=== PATIENT | male | born 1950 | race Caucasian/White ===

== ENCOUNTER → 2016-05-06 | Outpatient (CLI) | payer MEDICARE ==
[2016-05-06 11:32] LABS: Basophils % (A) 1 %; CH 30.3; CHCM 33.1; Eosinophils # (A) 0.1 k/uL (0-0.7); Eosinophils % (A) 2 %; HCT 45.5 % (39.0-53.0); HDW 2.43; HGB 14.9 gm/dL (13.0-17.5); Luc % (Auto) 3; Lymphocytes # (A) 0.9 k/uL (1.0-4.8); Lymphocytes % (A) 24 %; MCH 30.2 pg (25.0-35.0); MCHC 32.8 g/dL (31.0-37.0); MCV 92.1 fL (80.0-100.0); Monocytes # (A) 0.2 k/uL (0-1.0); Monocytes % (A) 5 %; Neutrophils # (A) 2.6 k/uL (1.3-7.7); Neutrophils % (A) 67 %; RBC 4.94 m/uL (4.30-5.90); RDW 12.7 % (11.5-15.5); WBC (Perox) 4.05
[2016-05-06 11:47] LABS: Hemoglobin A1C 5.2 % (4.2-6.1)
[2016-05-06 11:52] LABS: ALT 36 U/L (21-72); AST 24 U/L (17-59); Alkaline Phosphatase 60 U/L (38-126); Anion Gap 9 mmol/L; Blood Urea Nitrogen 17 mg/dL (9-20); Calcium 9.6 mg/dL (8.4-10.2); Carbon Dioxide 28 mmol/L (22-30); Chloride 104 mmol/L (98-107); Cholesterol 195 mg/dL (<200); Creatine Kinase 102 U/L (55-170); Glucose 97 mg/dL (74-99); HDL Cholesterol 57 mg/dL (40-60); Non-African American GFR(MDRD) >60 (>60 ml/min/1.73 sqM); Potassium 5.2 mmol/L (3.5-5.1); Sodium 141 mmol/L (137-145); Total Bilirubin 0.8 mg/dL (0.2-1.3); Total Protein 7.3 g/dL (6.3-8.2); Triglycerides 112 mg/dL (<150); Uric Acid 6.3 mg/dL (3.5-8.5)
== END | disposition home or self-care (01) ==
LOC: LABWHC1 10:05
PROVIDERS: ATTEND Internal Medicine
DX: I10 Essential (primary) hypertension (principal); F32.9 Major depressive disorder, single episode, unspecified
CPT/HCPCS: 36415; 80053; 80061; 82550; 83036; 84443; 84550; 85025

== ENCOUNTER → 2016-09-21 | Outpatient (CLI) | payer MEDICARE ==
[2016-09-21 11:09] LABS: ALT 30 U/L (21-72); AST 25 U/L (17-59); Alkaline Phosphatase 64 U/L (38-126); Anion Gap 11 mmol/L; Blood Urea Nitrogen 19 mg/dL (9-20); Calcium 9.4 mg/dL (8.4-10.2); Carbon Dioxide 24 mmol/L (22-30); Chloride 107 mmol/L (98-107); Cholesterol 167 mg/dL (<200); Creatine Kinase 220 U/L (55-170); Glucose 99 mg/dL (74-99); HDL Cholesterol 51 mg/dL (40-60); Non-African American GFR(MDRD) >60 (>60 ml/min/1.73 sqM); Potassium 4.6 mmol/L (3.5-5.1); Sodium 142 mmol/L (137-145); Total Bilirubin 0.7 mg/dL (0.2-1.3); Total Protein 6.8 g/dL (6.3-8.2); Triglycerides 61 mg/dL (<150); Uric Acid 5.2 mg/dL (3.5-8.5)
[2016-09-21 11:39] LABS: Basophils % (A) 1 %; CH 31.5; CHCM 33.2; Eosinophils # (A) 0.1 k/uL (0-0.7); Eosinophils % (A) 2 %; HCT 45.9 % (39.0-53.0); HDW 2.35; HGB 14.5 gm/dL (13.0-17.5); Luc # (Auto) 0.11; Luc % (Auto) 2; Lymphocytes # (A) 0.8 k/uL (1.0-4.8); Lymphocytes % (A) 14 %; MCH 30.2 pg (25.0-35.0); MCHC 31.7 g/dL (31.0-37.0); MCV 95.4 fL (80.0-100.0); Mean Platelet Volume 9.6; Monocytes # (A) 0.3 k/uL (0-1.0); Monocytes % (A) 5 %; Neutrophils # (A) 4.3 k/uL (1.3-7.7); Neutrophils % (A) 77 %; Prostate Specific Antigen 0.97 ng/mL (0.00-4.00); RBC 4.82 m/uL (4.30-5.90); RDW 13.4 % (11.5-15.5); WBC 5.6 k/uL (3.8-10.6)
[2016-09-21 11:49] LABS: Appearance,Urine Clear (Clear); Bilirubin,Urine Negative (Negative); Glucose,Urine (UA) Negative (Negative); Ketones,Urine Negative (Negative); Leukocyte Esterase,Urine Negative (Negative); Nitrite,Urine Negative (Negative); PH, Urine 5.5 (5.0-8.0); Protein,Urine Negative (Negative); Specific Gravity,Urine 1.022 (1.001-1.035); UA Billing (MACRO vs. MICRO) CHEM; Urobilinogen,Urine <2.0 mg/dL (<2.0)
[2016-09-21 13:06] LABS: Hemoglobin A1C 5.3 % (4.2-6.1)
== END | disposition home or self-care (01) ==
LOC: LABWHC1 09:54
PROVIDERS: ATTEND Internal Medicine
DX: Z00.00 Encounter for general adult medical examination without abnormal findings (principal); N40.0 Benign prostatic hyperplasia without lower urinary tract symptoms; M51.9 Unspecified thoracic, thoracolumbar and lumbosacral intervertebral disc disorder; I10 Essential (primary) hypertension; E78.00 Pure hypercholesterolemia, unspecified; F32.9 Major depressive disorder, single episode, unspecified; N52.9 Male erectile dysfunction, unspecified
CPT/HCPCS: 36415; 80053; 80061; 81003; 82306; 82550; 83036; 84153; 84402; 84403; 84439; 84443; 84550; 85025

== ENCOUNTER → 2016-10-09 | Outpatient (CLI) | payer MEDICARE ==
--- NOTE | 2016-10-09 15:44 | US ---
EXAMINATION TYPE: US carotid duplex BILAT DATE OF EXAM: 10/09/2016 COMPARISON: NONE CLINICAL HISTORY: 66-year-old male Stenosis of B/L Carotid Arteries I65.23. TECHNIQUE: Carotid duplex ultrasound examination. Indirect Doppler criteria was utilized. FINDINGS: No significant atherosclerotic change at either bifurcation. EXAM MEASUREMENTS: RIGHT: Peak Systolic Velocity (PSV) cm/sec ----- Right CCA: 81.7 ----- Right ICA: 67.0 ----- Right ECA: 84.1 ICA/CCA ratio: 0.81 RIGHT: End Diastole cm/sec ----- Right CCA: 27.7 ----- Right ICA: 14.2 ----- Right ECA: 15.5 LEFT: Peak Systolic Velocity (PSV) cm/sec ----- Left CCA: 71.9 ----- Left ICA: 53.5 ----- Left ECA: 82.9 ICA/CCA ratio: 0.75 LEFT: End Diastole cm/sec ----- Left CCA: 25.3 ----- Left ICA: 20.4 ----- Left ECA: 15.5 VERTEBRALS (direction of flow): Right Vertebral: Antegrade Left Vertebral: Antegrade IMPRESSION: No hemodynamically significant stenosis appreciated in either internal carotid artery. Criteria for Assigning % of Stenosis / Diameter reduction (Estimation based on the indirect measurements of the internal carotid artery velocities (ICA PSV). 1. Normal (no stenosis)=ICA PSV < 125 cm/s: ratio < 2.0: ICA EDV<40 cm/s. 2. Less than 50% stenosis=ICA PSV < 125 cm/s: ratio < 2.0: ICA EDV<40 cm/s. 3. 50 to 69% stenosis=ICA PSV of 125 to 230 cm/s: ration 2.0 ? 4.0: ICA EDV 40-100 cm/s. 4. Greater than 70% stenosis to near occlusion= ICA PSV > 230 cm/s: ratio > 4.0: ICA EDV > 100 cm/s. 5. Near occlusion= ICA PSV velocities may be low or undetectable: variable ratio and ICA EDV. 6. Total occlusion=unable to detect flow.
--- NOTE | 2016-10-10 10:56 | ECHOF ---
Referral Reason:Stenosis of B/L Carotid Arteries I65.23 MEASUREMENTS -------- HEIGHT: 188.0 cm WEIGHT: 90.7 kg BP: IVSd: 1.1 cm (0.6 - 1.1) LVIDd: 5.2 cm (3.9 - 5.3) LVPWd: 0.9 cm (0.6 - 1.1) IVSs: 1.5 cm LVIDs: 3.8 cm LVPWs: 1.3 cm LAESV Index (A-L): 43.31 ml/m Ao Diam: 3.4 cm (2.0 - 3.7) AV Cusp: 1.9 cm (1.5 - 2.6) LA Diam: 3.6 cm (2.7 - 3.8) MV EXCURSION: 26.030 mm (> 18.000) MV EF SLOPE: 106 mm/s (70 - 150) EPSS: 0.3 cm MV E Rick: 0.53 m/s MV DecT: 210 ms MV A Rick: 0.49 m/s MV E/A Ratio: 1.09 RAP: 5.00 mmHg RVSP: 27.49 mmHg FINDINGS -------- Sinus rhythm. This was a technically adequate study. The left ventricular size is normal. There is mild concentric left ventricular hypertrophy. Overall left ventricular systolic function is low-normal with, an EF between 50 - 55 %. The right ventricle is normal in size. LA is severely dilated >40 ml/m2 The right atrial size is normal. Aortic valve is trileaflet and is mildly thickened. There is no evidence of aortic regurgitation. The mitral valve leaflets are mildly thickened. Uuqobnsk-ol-tzxeka mitral regurgitation is present. Mild prolapse of the anterior mitral valve leaflet. Mild prolapse of the posterior mitral valve leaflet. Mild tricuspid regurgitation present. There is mild pulmonary hypertension. The right ventricular systolic pressure, as measured by Doppler, is 27.49mmHg. Trace/mild (physiologic) pulmonic regurgitation. The aortic root size is normal. There is no pericardial effusion. CONCLUSIONS -------- 1. This was a technically adequate study. 2. There is mild pulmonary hypertension. 3. Trace/mild (physiologic) pulmonic regurgitation. 4. The aortic root size is normal. 5. There is no pericardial effusion. 6. There is mild concentric left ventricular hypertrophy. 7. Overall left ventricular systolic function is low-normal with, an EF between 50 - 55 %. 8. LA is severely dilated >40 ml/m2 9. Aortic valve is trileaflet and is mildly thickened. 10. The mitral valve leaflets are mildly thickened. 11. Mild prolapse of the anterior mitral valve leaflet. 12. Mild prolapse of the posterior mitral valve leaflet. 13. Mild tricuspid regurgitation present. PRO[employer] MANAGER [employer]: Reina Pichardo RDCS
== END | disposition home or self-care (01) ==
LOC: RADUSMAIN 14:11
PROVIDERS: ATTEND Internal Medicine
DX: I08.0 Rheumatic disorders of both mitral and aortic valves (principal); I65.23 Occlusion and stenosis of bilateral carotid arteries; I27.2 Other secondary pulmonary hypertension
CPT/HCPCS: 93306; 93880

== ENCOUNTER 2017-11-20 07:56 | Day surgery (SDC) | payer MEDICARE ==
[2017-11-15 14:30] VITALS: BMI 24.6
[~2017-11-20 07:56] MED LIST: LACTATED RINGERS 1,000 ML IV SCH; LIDOCAINE 1% 20 ML VIAL (10MG/ML) FOR IV START INTRADERMA PRN; MIDAZOLAM 2 MG/2 ML VIAL IV PRN
[2017-11-20 08:15] VITALS: RESP 18; TEMP 97.8
[2017-11-20] MEDS ORDERED: LIDOCAINE 1% 20 ML VIAL (10MG/ML) FOR IV START INTRADERMA ONE (08:19)
[2017-11-20] MEDS ORDERED: PROPOFOL 10 MG/ML 20 ML VIAL IV ONE (09:02)
[2017-11-20] MEDS ORDERED: LIDOCAINE 1% INJ 10MG/ML (20 ML MDV) ONE (09:02)
[2017-11-20 09:51] VITALS: BP 137/88; PULSE 64
--- NOTE | 2017-11-20 10:17 | P.PCN ---
Date of Procedure: 11/20/17 Procedure(s) Performed: Procedure: Total colonoscopy. Preoperative diagnosis: Screening for neoplasia. Postoperative diagnosis: 1. Sigmoid diverticulosis with no evidence of acute diverticulitis or strictures. 2. No polyps or tumors seen. 3. Low-grade internal hemorrhoids without bleeding at the time of this exam. Brief clinical history: The patient is 67-year-old male who is scheduled for this evaluation for screening for neoplasia age being his risk factor. He had a prior exam more than 10 years ago. There is no family history of colon cancer or any abdominal pains, change in bowel habits or bleeding. Procedure: With the patient on his left lateral decubitus position and after informed consent and adequate sedation, the perianal area was inspected and it did not show any fissures or fistulas. There were no masses felt on digital rectal examination. The Olympus CFQ 160L video colonoscope was then inserted in the rectum in the usual fashion and advanced to the cecum. There were a few diverticular orifices seen scattered in the distal sigmoid with no evidence of acute diverticulitis or strictures. The mucosa appeared healthy. No polyps or tumors were seen. I retroflexed the endoscope in the rectum before the endoscope was withdrawn. Low-grade internal hemorrhoids were noted without evidence of bleeding. The patient tolerated the procedure well. Plan: The patient was reassured. Discussed dietary measures and local care for hemorrhoids. He will follow-up with you as planned and I recommended repeat exam in 10 years.
== END 2017-11-20 09:57 | disposition home or self-care (01) ==
LOC: ORWHC2ENDO 07:56
DX: Z12.11 Encounter for screening for malignant neoplasm of colon (principal); K57.30 Diverticulosis of large intestine without perforation or abscess without bleeding; K64.8 Other hemorrhoids; K21.9 Gastro-esophageal reflux disease without esophagitis; I10 Essential (primary) hypertension; I34.1 Nonrheumatic mitral (valve) prolapse; F32.9 Major depressive disorder, single episode, unspecified; Z79.82 Long term (current) use of aspirin; Z79.899 Other long term (current) drug therapy; Z88.0 Allergy status to penicillin
CPT/HCPCS: J2001; J2704; G0121; 45378

== ENCOUNTER → 2019-10-27 | Outpatient (CLI) | payer MEDICARE ==
--- NOTE | 2019-10-27 11:19 | XR ---
EXAMINATION TYPE: XR shoulder complete RT DATE OF EXAM: 10/27/2019 COMPARISON: NONE HISTORY: Pain TECHNIQUE: Right Shoulder examined in 3 projections FINDINGS: The humeral head articulates with the glenoid. The acromio-clavicular junction is normal. No acute fractures or dislocations are evident. A follow up study can be performed 7-10 days from acute trauma for continued pain. IMPRESSION: 1. Normal three-view right shoulder
== END | disposition home or self-care (01) ==
LOC: RADXRMAIN 10:59
PROVIDERS: ATTEND Internal Medicine
DX: M25.511 Pain in right shoulder (principal)

== ENCOUNTER → 2019-11-27 | Outpatient (CLI) | payer MEDICARE ==
--- NOTE | 2019-11-27 19:53 | CONS ---
CONSULTATION DATE OF SERVICE: 11/27/2019 This patient is a 69-year-old gentleman who has been evaluated in the sleep center for possible obstructive sleep apnea-hypopnea syndrome. HISTORY OF PRESENT ILLNESS/SLEEP-WAKE EVALUATION: The patient has a pretty regular sleep schedule from 11 p.m. until 6 a.m., and then he gets out of bed around 9 a.m. basically 7 days a week. He denied any problem with falling asleep, although he has a TV set in the bedroom. He sleeps in different positions with his . According to her, he snores. He wakes up from sleep up to 3 times with one episode of nocturia and dry mouth. Positive history of restless leg symptoms. No history of hypnagogic hallucinations, sleep paralysis or cataplexy. In the morning the patient wakes up tired, falling asleep during the day. [place] Sleepiness Scale is 6. He may take a nap one time a day around 2 p.m. and usually feel refreshed after naps. He sees vivid dreams during naps. In total he drinks 3 caffeinated beverage during the day. PAST MEDICAL HISTORY: Positive for hypertension, depression, hyperlipidemia, knee problem, acid reflux, shoulder problems. PAST SURGICAL HISTORY: Surgery for carpal tunnel syndrome for medial and lateral left knee, fusion on C6 level, rotator cuff surgery. MEDICATIONS: Carvedilol, aripiprazole, bupropion, sertraline, omeprazole, pilocarpine, atorvastatin, aspirin, ibuprofen, Bi-Flex. SOCIAL HISTORY: Negative for smoking or using alcohol. FAMILY HISTORY: Positive for cancer in several members of his family. REVIEW OF SYSTEMS: Awakenings from sleep, sometimes sleepiness during the day. PHYSICAL EXAMINATION: GENERAL: A pleasant gentleman without distress. VITAL SIGNS: BP 126/84, HR 73, RR 16, height 6 feet 1 inch, weight 215.6, temperature 98.9, oxygen saturation at room air 97%. HEENT: PERRLA, EOMI. Evaluation of oropharynx showed tongue protrudes midline. Low position of soft palate. Mallampati IV. NECK: Supple. No JVD. Thyroid is not palpable. LUNGS: Clear to percussion and to auscultation. Good air exchange. No wheezing or rhonchi. HEART: S1, S2 regular. No murmurs, gallops or rubs. ABDOMEN: Soft and nontender. Bowel sounds are present. No organomegaly. EXTREMITIES: No clubbing or cyanosis. SUGAR DRIER: Awake, alert, and oriented X3. Cranial nerves 2 to 7 intact. There is no fasciculation or atrophy. noted. No focal deficits observed. IMPRESSION: 1. Snoring, multiple awakenings from sleep, low position of soft palate, episodes of daytime sleepiness; obstructive sleep apnea-hypopnea syndrome. 2. Hypertension. 3. Depression. 4. Hyperlipidemia. 5. Shoulder problems. 6. Knee problems. 7. Acid reflux. 8. Status post carpal tunnel syndrome surgery. 9. Status post fusion of level C5-C6. 10.Surgery for rotator cuff in the right shoulder, 2008. PLAN: 1. Polysomnography for evaluation of patient's breathing during sleep. 2. CPAP/BiPAP titration if sleep study confirms obstructive sleep apnea-hypopnea syndrome. 3. Preferable position during sleep on the side. 4. No driving if patient feels any sleepiness. 5. I will see patient for follow up visit to explain results of testing and following plan. Thank you very much for referring this patient for consultation. Sincerely, Hakeem Cabrera MD, PhD, FAASM Diplomat of [employer] [place] Former of [facility] [place] MMODL / IJN: [id number] /
== END | disposition home or self-care (01) ==
LOC: SLEEP 16:17
PROVIDERS: ATTEND Internal Medicine
DX: G47.33 Obstructive sleep apnea (adult) (pediatric) (principal); I10 Essential (primary) hypertension; F32.9 Major depressive disorder, single episode, unspecified; E78.5 Hyperlipidemia, unspecified; K21.9 Gastro-esophageal reflux disease without esophagitis; M25.9 Joint disorder, unspecified; Z98.890 Other specified postprocedural states; Z98.1 Arthrodesis status
CPT/HCPCS: 99211

== ENCOUNTER → 2020-05-03 | Outpatient (CLI) | payer MEDICARE ==
--- NOTE | 2020-05-04 08:34 | US ---
EXAMINATION TYPE: US kidneys/renal and bladder DATE OF EXAM: 05/03/2020 COMPARISON: NONE CLINICAL HISTORY: R94.4 ABN KIDNEY FUNCTIONS. no symptoms EXAM MEASUREMENTS: Right Kidney: 10.1 x 4.7 x 5.2 cm Left Kidney: 10.8 x 4.4 x 4.0 cm Right Kidney: No hydronephrosis or masses seen Left Kidney: No hydronephrosis or masses seen Bladder: possible diverticulum Bilateral Jets seen: yes . There is no evidence for hydronephrosis at this point in time. No nephrolithiasis is seen. No fabian s are identified. The urinary bladder is anechoic. Bilateral ureteral jets are seen. IMPRESSION: Urinary bladder diverticulum. Otherwise unremarkable study.
== END | disposition home or self-care (01) ==
LOC: RADUSWWP 15:57
PROVIDERS: ATTEND Internal Medicine
DX: N32.3 Diverticulum of bladder (principal); R94.4 Abnormal results of kidney function studies
CPT/HCPCS: 76770

== ENCOUNTER → 2021-09-09 | Outpatient (CLI) | payer MEDICARE ==
--- NOTE | 2021-09-09 11:52 | CA ---
Exercise Stress Test Report Name: Jay Jay Mcqueen Exam Date: 09/09/2021 09:53 Exam Location: [facility] Stress Ht (in): 74 Wt (lb): 225 BSA: 2.28 Ordering Phys: Abida Lunsford MD Referring Phys: Abida Lunsford MD Technologist: Joseph Carranza Age: 70 Gender: M : 1950 Procedure CPT: Indications: I25.119 ATHSCL HEART DISEASE OF [place] ART ICD-10 Codes: Patient History: Syncope, Hypertension Medications: Pilocarpine, Wellbutrine, Aripiprazole, Carvedilol, Omeprazole, Ibuprofin, Aspirin, Storvastatin, Sertraline Meds past 24 hrs: Pretest Chest Pain: STRESS TEST Carroll Protocol Exercise Duration (min:sec): 07:[address] Depressions (mm): Angina Score: Thorne Score: Resting HR (bpm): 77 Peak HR (bpm): 137 Resting BP (mmHg): 133 / 82 Peak BP (mmHg): 185 / 80 MPHR: 151 Target HR: 128 % MPHR: 91 METS: 10.3 Total Dose: Peak Dose: Atropine: Double Product: 03739 BP Response: Stress Termination: Reached target heart rate Stress Symptoms: No chest pain or symptoms Stress Summary: ECG ANALYSIS Resting ECG: Sinus rhythm with normal MN interval and QRS duration Stress ECG: Sinus rhythm and sinus tachycardia without any ischemic changes CONCLUSIONS #1. Negative stress test. #2. Patient did not experience any chest pain. #3. No arrhythmias detected. #4. Patient exercises capacity is good Dr. Cody Nicole MD (Electronically Signed) Final Date: 09 September 2021 11:51
--- NOTE | 2021-09-09 16:19 | NM ---
EXAMINATION TYPE: NM stress cardiolite complete DATE OF EXAM: 09/09/2021 COMPARISON: NONE HISTORY: Atherosclerotic heart disease TECHNIQUE: After the intravenous administration of 9.8 mCi Tc 99m Sestamibi - Cardiolite resting SPE CT images acquired 45 minutes post injection. At peak stress 25.5 mCi Tc 99m Sestamibi - Stress images obtained 15 minutes post injection The patient was stressed with 0.4mg Lexiscan. FINDINGS: There is a large fixed defect along the inferior wall on both rest and stress images compatible with prior infarct. There appears to be a moderate size defect along the anterior wall on resting images w hich may be slightly larger on stress images. Prior infarct with maura-infarct ischemic change could b e considered. Polar maps suggest these defects are fixed without reversibility. No reversible stress defects on Spect images There is some dyskinesia of the distal anterior and inferior fish Ejection fraction is calculated to be 61 %. IMPRESSION: 1. 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 Correlate with EKG changes. 2. There may be some subtle change on SPECT images are not supported with the polar maps of some maura -infarct stress-induced ischemic change. 3. Dyskinesia of the distal anterior and inferior wall motion.
== END | disposition home or self-care (01) ==
LOC: RADNMMAIN 08:08
PROVIDERS: ATTEND Internal Medicine
DX: I25.119 Atherosclerotic heart disease of native coronary artery with unspecified angina pectoris (principal)
CPT/HCPCS: 93017; 78452; A9500

== ENCOUNTER 2021-09-19 06:08 | Day surgery (SDC) | payer MEDICARE ==
[2021-09-16 10:58] VITALS: BMI 29.5
[~2021-09-19 06:08] MED LIST changes: +ALPRAZolam 0.25 MG TAB PO PRN; +ALPRAZolam 0.5 MG TAB PO PRN; +ASPIRIN 325 MG TAB PO STA; +ATORVASTATIN 80 MG TAB PO STA; +HEPARIN SODIUM,PORCINE 10,000 UNIT in SODIUM CHLORIDE 0.9% 1,000 ML IRRIGATION PRN; +HEPARIN SODIUM,PORCINE 2,500 UNIT in SODIUM CHLORIDE 0.9% 250 ML IRRIGATION PRN; -LACTATED RINGERS 1,000 ML IV SCH; -LIDOCAINE 1% 20 ML VIAL (10MG/ML) FOR IV START INTRADERMA PRN; -MIDAZOLAM 2 MG/2 ML VIAL IV PRN; +NITROGLYCERIN SL TABS 0.4 MG TAB SUBLINGUAL PRN; +SODIUM CHLORIDE 0.9% 1,000 ML in EMPTY BAG 1 BAG IV SCH
[2021-09-19] MEDS ORDERED: SODIUM CHLORIDE 0.9% 1,000 ML IV ONE (06:35)
[2021-09-19 07:28] VITALS: RESP 16; TEMP 97.5
[2021-09-19] MEDS ORDERED: fentaNYL (PF) 50 MCG/ML 2 ML AMP IV ONE (07:35)
[2021-09-19] MEDS ORDERED: LIDOCAINE 1% INJ 10MG/ML (5 ML VIAL-PF) SQ ONE (07:38)
[2021-09-19] MEDS ORDERED: VERAPAMIL SYRINGE (5 MG/10 ML) INTRAARTER ONE (07:40)
[2021-09-19] MEDS ORDERED: IOPAMIDOL-370 125ML BTL INJ ONE (07:55)
[2021-09-19] MEDS ORDERED: RX INFO: IV CONTRAST WAS GIVEN 1 EACH MISC MISCELLANE PRN (08:08)
[2021-09-19] MEDS ORDERED: SODIUM CHLORIDE 0.9% 1,000 ML IV SCH (08:15)
--- NOTE | 2021-09-19 08:15 | P.CARDCATH ---
Date of Procedure: 09/19/21 Description of Procedure: Cardiac Catheterization: The patient is a 71-year-old male with a history of hypertension and hyperlipidemia and recent episode of acute dyspnea and subsequent abnormal MPI. Recommendations were made regarding cardiac catheterization, the risks and the complications were discussed with the patient who is in full understanding and agreement. Procedure Description: Patient was brought to medical laboratory assistant in fasting semi-sedated state after receiving Fentanyl and Benadryl achieiving moderate conscious sedated state. Using Xylocaine Anesthesia and Seldinger technique, a 6-Faroese sheath was introduced in the right radial artery . Subsequently, selective coronary angiography performed using a 5-Faroese 2.5 bend [place] catheter. Multiple views of the coronary artery including hemiaxial views were obtained. The 5-Faroese pigtail catheter was used to cross the aortic valve and LVEDP was calculated. A CONCEPCION view of the left ventricle was obtained. Following that, catheter and sheath were removed. Hemostasis was obtained with deployment of TR band . There was no immediate complication. Patient was returned to room in stable condition. Of note, the patient received a total of 5000 units of intravenous heparin as well as intra-arterial verapamil. There was no immediate complications. Findings: Left main: This is a large sized vessel, bifurcating into left circumflex and LAD, left main has no high-grade stenosis LAD: This is a large size vessel, reaching the apex with a wrap around the apex segment, the LAD gives rise to one diagonal branch. The LAD and its branches have no evidence of high-grade stenosis Left circumflex: This is a nondominant vessel, large in caliber, giving rise to a large obtuse marginal branch. The proximal obtuse marginal branch has 10-20% plaque. RCA: This is a dominant vessel, large in caliber, bifurcating to PDA and PLV, the RCA has no evidence of high-grade stenosis. Left Ventriculogram: Was performed in the CONCEPCION view and revealed a normal left ventricle size and systolic function Hemodynamics: There was no gradient across the aortic valve, LVEDP 18-20 mmHg Conclusion: 1. Mild disease in the obtuse marginal branch 1 2. Right dominance 3. Normal left ventricle size and systolic function Recommendations: In view of the finding I have recommended continued medical therapy with the aggressive coronary artery risks modification. The findings and recommendations were discussed with the patient and his family, they are in full understanding and agreement. Duration of sedation is 20 minutes.
[2021-09-19] MEDS ORDERED: PILOCARPINE 5 MG TAB PO SCH (09:00)
[2021-09-19] MEDS ORDERED: ATORVASTATIN 40 MG TAB PO SCH (09:00)
[2021-09-19] MEDS ORDERED: carvediloL 12.5 MG TAB PO SCH (09:00)
[2021-09-19] MEDS ORDERED: NON FORMULARY DRUG (Omeprazole 20 MG Capsule.Dr) PO SCH (09:00)
[2021-09-19] MEDS ORDERED: BUPROPION HCL 200 MG PO SCH (09:00)
[2021-09-19] MEDS ORDERED: ARIPiprazole 2 MG TAB PO SCH (09:00)
[2021-09-19] MEDS ORDERED: CYCLOBENZAPRINE 10 MG TAB PO SCH (09:00)
[2021-09-19 12:19] VITALS: BP 156/77; PULSE 60
[2021-09-19] MEDS ORDERED: NON FORMULARY DRUG (Aspirin [Adult Low Dose Aspirin Ec] 81 MG Tablet.Dr) PO SCH (21:00)
[2021-09-19] MEDS ORDERED: SERTRALINE 100 MG TAB PO SCH (21:00)
== END 2021-09-19 12:46 | disposition home or self-care (01) ==
LOC: CATHCVL 06:08
PROVIDERS: ATTEND Internal Medicine Interventional Cardiology
DX: R94.39 Abnormal result of other cardiovascular function study (principal)
CPT/HCPCS: 93458; 87635; C1769 ×2; C1894; J2001; J3010; J1644; Q9967

== ENCOUNTER → 2022-02-16 | Outpatient (CLI) | payer MEDICARE ==
--- NOTE | 2022-02-16 15:30 | US ---
EXAMINATION TYPE: US carotid duplex BILAT DATE OF EXAM: 02/16/2022 COMPARISON: NONE CLINICAL HISTORY: R20.0 ANESTHESIA OF SKIN. TECHNIQUE: Carotid duplex ultrasound examination. Indirect Doppler criteria was utilized. FINDINGS: EXAM MEASUREMENTS: RIGHT: Peak Systolic Velocity (PSV) cm/sec ----- Right CCA: 68.8 ----- Right ICA: 60.9 ----- Right ECA: 115.6 ICA/CCA ratio: 0.9 RIGHT: End Diastole cm/sec ----- Right CCA: 17.1 ----- Right ICA: 23.2 ----- Right ECA: 21.1 LEFT: Peak Systolic Velocity (PSV) cm/sec ----- Left CCA: 88.3 ----- Left ICA: 65.0 ----- Left ECA: 97.1 ICA/CCA ratio: 0.7 LEFT: End Diastole cm/sec ----- Left CCA: 26.7 ----- Left ICA: 28.7 ----- Left ECA: 22.3 VERTEBRALS (direction of flow): Right Vertebral: Antegrade Left Vertebral: Antegrade Rhythm: Normal No significant stenosis IMPRESSION: Less than 50% stenosis of the bilateral carotid bifurcations. Criteria for Assigning % of Stenosis / Diameter reduction (Estimation based on the indirect measurements of the internal carotid artery velocities (ICA PSV). 1. Normal (no stenosis)=ICA PSV < 125 cm/s: ratio < 2.0: ICA EDV<40 cm/s. 2. Less than 50% stenosis=ICA PSV < 125 cm/s: ratio < 2.0: ICA EDV<40 cm/s. 3. 50 to 69% stenosis=ICA PSV of 125 to 230 cm/s: ration 2.0 ? 4.0: ICA EDV 40-100 cm/s. 4. Greater than 70% stenosis to near occlusion= ICA PSV > 230 cm/s: ratio > 4.0: ICA EDV > 100 cm/s. 5. Near occlusion= ICA PSV velocities may be low or undetectable: variable ratio and ICA EDV. 6. Total occlusion=unable to detect flow.
--- NOTE | 2022-02-16 16:17 | XR ---
EXAMINATION TYPE: XR cervical spine w flex/ext DATE OF EXAM: 02/16/2022 COMPARISON: NONE HISTORY: 71 year-old right-handed tingling for one month. History of cervical fusion. 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 Postoperative change of C 4-C7 ACDF. Hypertrophic facet and uncovertebral joint arthropathy both above and below the area of mi ld degenerative disc disease below the fusion at C7-T1 alignment is maintained. There appears to be t he development of grade 1 anterolisthesis at C7-T1 upon flexion. IMPRESSION: 1. Status post C4-C7 ACDF. Moderate facet arthropathy both above the fusion. Mild degenerative disc d isease C7-T1 below the fusion. 2. A grade 1 anterolisthesis develops at C7-T1 upon flexion. No spondylolisthesis on neutral position or extension.
== END | disposition home or self-care (01) ==
LOC: RADUSWWP 11:59
PROVIDERS: ATTEND Internal Medicine
DX: M47.12 Other spondylosis with myelopathy, cervical region (principal); I65.23 Occlusion and stenosis of bilateral carotid arteries; M48.02 Spinal stenosis, cervical region; M50.03 Cervical disc disorder with myelopathy, cervicothoracic region; R20.0 Anesthesia of skin
CPT/HCPCS: 72052; 93880

== ENCOUNTER → 2022-07-14 | Outpatient (CLI) | payer MEDICARE ==
--- NOTE | 2022-07-15 11:17 | MR ---
EXAMINATION TYPE: MR MRA/MRV head wo con DATE OF EXAM: 07/14/2022 10:01 PM CLINICAL INDICATION:Male, 71 years old with history of R20.0; Dizziness, right shoulder and neck numb ness COMPARISON: None TECHNIQUE: MRA brain: 3-D [id number] Axial with MIP and 3-D reconstruction performed on a separate workstati on. MRV of the brain: performed utilizing two-dimensional [id number]-[id number] technique. MIP and 3-D reconstru ction performed on a separate workstation. IV Contrast: None Findings: Vertebral arteries: The vertebral arteries are patent. Diminutive intracranial vertebral arteries. Basilar artery: The basilar artery is intact. The basilar artery bifurcation is normal. Diminutive si ze of the basilar artery. Internal Carotid arteries: The cervical, petrous, cavernous and supraclinoid segments are normal. CASPER: Patent with no evidence of aneurysm. Hypoplastic A1 segment on the left. Normal appearing A1 seg ment on the right. ACOM: Present without evidence of aneurysm. MCA: Patent with no evidence of aneurysm. MANAGER [employer] HE[employer]: Patent with no evidence of aneurysm. origin of the posterior cerebellar arteries bilateral ly. PCOM: origin of the posterior cerebellar arteries bilaterally. There is no evidence of venous occlusion or collateral circulation. There is no evidence of sinus th rombosis. Dominant right transverse and sagittal sinus. IMPRESSION: 1. No evidence of venous sinus thrombosis. 2. No evidence of intracranial aneurysm or significant stenosis. 3. The origins of the posterior cerebral arteries with diminutive intracranial vertebral arteries an d basilar artery. 4. Hypoplastic left A1 segment of the anterior cerebral artery.
== END | disposition home or self-care (01) ==
LOC: RADMRIMAIN 21:15
PROVIDERS: ATTEND Internal Medicine
DX: G93.89 Other specified disorders of brain (principal); R20.0 Anesthesia of skin
CPT/HCPCS: 70544

== ENCOUNTER → 2023-05-14 | Outpatient (CLI) | payer MEDICARE | END | disposition home or self-care (01) | LOC: LABWHC1 09:52 | PROVIDERS: ATTEND Internal Medicine Interventional Cardiology | DX: Z53.9 Procedure and treatment not carried out, unspecified reason (principal) ==

== ENCOUNTER → 2023-05-18 | Outpatient (CLI) | payer MEDICARE ==
[2023-05-18 10:13] LABS: African American GFR (CKD) 79 (>60 ml/min/1.73 sqM); Blood Urea Nitrogen 20 mg/dL (9-20); Non-African American GFR(CKD) 69 (>60 ml/min/1.73 sqM)
--- NOTE | 2023-05-18 11:49 | CT ---
Exam: CT Angiography of the Chest. Date: 05/18/2023. Comparison: None History: Thoracic aortic aneurysm. Technique: CT examination of the chest was performed following the intravenous administration of 100 mL of Isovue-300. CT dose lowering techniques were used, to include: automated exposure control, adju stment for patient size, and/or use of iterative reconstruction. FINDINGS: Mediastinum and Uma: There is no axillary, mediastinal or hilar lymphadenopathy. Pleural and Pericardial spaces: There are no pleural or pericardial effusions. Upper Abdomen: The visualized upper abdomen is unremarkable. Cardiovascular: Mild dilation of the ascending thoracic aorta up to 3.9 cm in diameter. There is no e vidence of aortic dissection. Pulmonary Artery: There are no filling defects in the pulmonary arteries. Lung Parenchyma and Airways: The lungs are clear. Bones: No fracture or aggressive osseous lesion. IMPRESSION: 1. Mild dilation of ascending thoracic aorta up to 3.9 cm. 2. No evidence of aortic dissection. 3. No evidence of pulmonary and wasn't. 4. No evidence of pneumonia, pleural or pericardial effusions.
== END | disposition home or self-care (01) ==
LOC: RADCTMAIN 09:27
PROVIDERS: ATTEND Internal Medicine Interventional Cardiology
DX: I71.21 Aneurysm of the ascending aorta, without rupture (principal)
CPT/HCPCS: 82565; 84520; 71275; 36415; Q9967

== ENCOUNTER → 2023-05-24 | Outpatient (CLI) | payer MEDICARE ==
[2023-05-24 16:17] LABS: BUN/Creat Ratio 13.58 Ratio (12.00-20.00); Blood Urea Nitrogen 16.3 mg/dL (9.0-27.0); Carbon Dioxide 23.1 mmol/L (21.6-31.8); Chloride 105 mmol/L (96-109); Glucose 99 mg/dL (70-110); Potassium 4.3 mmol/L (3.5-5.5); Sodium 138 mmol/L (135-145)
== END | disposition home or self-care (01) ==
LOC: LABWHC1 09:39
PROVIDERS: ATTEND Internal Medicine Interventional Cardiology
DX: I10 Essential (primary) hypertension (principal)
CPT/HCPCS: 36415; 80048

== ENCOUNTER 2023-06-19 05:33 | Day surgery (SDC) | payer MEDICARE ==
[2023-06-14 10:00] VITALS: BMI 29.5
[2023-06-19] MEDS: SODIUM CHLORIDE 0.9% 500 ML 500 ML IV ONE (06:10)
[2023-06-19 06:39] VITALS: RESP 16; TEMP 98.4
[2023-06-19] MEDS ORDERED: fentaNYL (PF) 50 MCG/ML 2 ML AMP ONE (07:13)
[2023-06-19] MEDS: BENZOCAINE SPRAY 1 CAN TOPICAL ONE (07:19)
[2023-06-19] MEDS: fentaNYL (PF) 50 MCG/1 ML VIAL IVP ONE (07:21)
[2023-06-19] MEDS: MIDAZOLAM 2 MG/2 ML VIAL IVP ONE ×2 (07:21→07:24)
[2023-06-19] MEDS ORDERED: SODIUM CHLORIDE 0.9% 1,000 ML IV SCH (07:45)
--- NOTE | 2023-06-19 07:50 | P.PCN ---
Date of Procedure: 06/19/23 Description of Procedure: Indication: Mitral valve Procedure Description: After explaining the procedure to the patient, it's risk and complications, blood pressure, heart rate and O2 saturation were monitored. The throat was sprayed with Cetacaine. Patient received 3 mg intravenous Versed, 50 mcg intravenous fentanyl. The probe was introduced into the esophagus without difficulty. Images were obtained. Following that, the probe was removed. There was no immediate complication. Findings: Left atrial size is dilated, left atrial appendage is normal. Left ventricle size and systolic function are normal. The aortic valve and tricuspid valve appears to be normal. 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 Descending thoracic aorta appears to be normal. No pericardial effusion was noted. Contrast bubble study revealed no shunting across the interatrial septum with Valsalva maneuver. Doppler: Pulse wave and color Doppler were obtained, and revealed moderate central mitral regurgitation, mild tricuspid regurgitation. There was no shunting across the interatrial septum. Conclusion: 1. Dilated left atrium 2. Normal left ventricular size and systolic function 3. Moderate central mitral regurgitation with bileaflet moderate prolapse 4. Mild tricuspid regurgitation 5. No shunting across the interatrial septum
[2023-06-19] MEDS ORDERED: ARIPiprazole 2 MG TAB PO SCH (09:00)
[2023-06-19] MEDS ORDERED: ATORVASTATIN 40 MG TAB PO SCH (09:00)
[2023-06-19] MEDS ORDERED: SERTRALINE 100 MG TAB PO SCH (09:00)
[2023-06-19] MEDS ORDERED: lisinopriL 5 MG TAB PO SCH (09:00)
[2023-06-19] MEDS ORDERED: NON FORMULARY DRUG (Omeprazole 20 MG Capsule.Dr) PO SCH (09:00)
[2023-06-19] MEDS ORDERED: BUPROPION HCL 200 MG PO SCH (09:00)
[2023-06-19] MEDS ORDERED: carvediloL 12.5 MG TAB PO SCH (09:00)
[2023-06-19 09:01] VITALS: BP 110/60; PULSE 64
[2023-06-19] MEDS ORDERED: NON FORMULARY DRUG (Aspirin [Adult Low Dose Aspirin Ec] 81 MG Tablet.Dr) PO SCH (21:00)
== END 2023-06-19 08:41 | disposition home or self-care (01) ==
LOC: CATHCVL 05:33
PROVIDERS: ATTEND Internal Medicine Interventional Cardiology
DX: I08.1 Rheumatic disorders of both mitral and tricuspid valves (principal); I25.10 Atherosclerotic heart disease of native coronary artery without angina pectoris; I71.21 Aneurysm of the ascending aorta, without rupture; E78.5 Hyperlipidemia, unspecified; Z87.891 Personal history of nicotine dependence; Z79.82 Long term (current) use of aspirin; Z79.899 Other long term (current) drug therapy
CPT/HCPCS: 93312; 93320; 93325; J2250; J3010

== ENCOUNTER → 2024-04-08 | Outpatient (CLI) | payer MEDICARE ==
--- NOTE | 2024-04-08 14:47 | US ---
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 Hx hypertension, hyperlipidemia. Additional History: .... TECHNIQUE: Grayscale, color Doppler and spectral Doppler evaluation of the bilateral carotid systems and vertebral arteries. Indirect Doppler criteria was utilized. FINDINGS: EXAM MEASUREMENTS: RIGHT: Peak Systolic Velocity (PSV) cm/sec ----- Right CCA: 92.9 ----- Right ICA: 72.4 ----- Right ECA: 108.1 ICA/CCA ratio: 0.8 RIGHT: End Diastole cm/sec ----- Right CCA: 20.2 ----- Right ICA: 24.1 ----- Right ECA: 12.8 LEFT: Peak Systolic Velocity (PSV) cm/sec ----- Left CCA: 101.6 ----- Left ICA: 92.9 ----- Left ECA: 117.7 ICA/CCA ratio: 0.9 LEFT: End Diastole cm/sec ----- Left CCA: 23.1 ----- Left ICA: 18.7 ----- Left ECA: 14.4 VERTEBRALS (direction of flow): Right Vertebral: Antegrade Left Vertebral: Antegrade Rhythm: Normal DIRECTOR STARS NOTES: No elevated velocities. Minimal plaque seen right bulb. IMPRESSION: Right: No hemodynamically significant stenosis. Left: No hemodynamically significant stenosis. Criteria for Assigning % of Stenosis / Diameter reduction (Estimation based on the indirect measurements of the internal carotid artery velocities (ICA PSV). 1. Normal (no stenosis)=ICA PSV < 125 cm/s: ratio < 2.0: ICA EDV<40 cm/s. 2. Less than 50% stenosis=ICA PSV < 125 cm/s: ratio < 2.0: ICA EDV<40 cm/s. 3. 50 to 69% stenosis=ICA PSV of 125 to 230 cm/s: ration 2.0 ? 4.0: ICA EDV 40-100 cm/s. 4. Greater than 70% stenosis to near occlusion= ICA PSV > 230 cm/s: ratio > 4.0: ICA EDV > 100 cm/s. 5. Near occlusion= ICA PSV velocities may be low or undetectable: variable ratio and ICA EDV. 6. Total occlusion=unable to detect flow. [facility], , 04/08/2024 2:44 PM
== END | disposition home or self-care (01) ==
LOC: RADUSWWP 14:14
PROVIDERS: ATTEND Internal Medicine
DX: I65.23 Occlusion and stenosis of bilateral carotid arteries (principal); E78.5 Hyperlipidemia, unspecified; I10 Essential (primary) hypertension
CPT/HCPCS: 93880